=== PATIENT | male | born 1990 | race Caucasian/White ===

== ENCOUNTER 2024-03-05 07:10 | Emergency (ER) | payer SELFPAY ==
[~2024-03-05] VITALS: Ht 172.7 cm; Wt 108.9 kg
[2024-03-05 07:29] VITALS: BP 129/67; PULSE 98; RESP 18; TEMP 97.3; O2SAT 96
[2024-03-05 08:36] VITALS: BP 119/80; PULSE 91; RESP 16; TEMP 97.6; O2SAT 98
[2024-03-05] MEDS: BACITRACIN OINT 500 UNITS/GM PKT TP ONE (08:36)
== END 2024-03-05 08:36 ==
LOC: MED 07:10
DX: S81.012A Laceration without foreign body, left knee, initial encounter (principal); V49.49XA Driver injured in collision with other motor vehicles in traffic accident, initial encounter; Y93.89 Activity, other specified; Y92.89 Other specified places as the place of occurrence of the external cause; Y99.8 Other external cause status
CPT/HCPCS: 99283